=== PATIENT | female | born 2000 | race Caucasian/White ===

== ENCOUNTER 2021-01-05 21:31 | Inpatient (IN) ==
[2021-01-05] MEDS: RINGER'S SOLUTION,LACTATED 1,000 ML IV ONE (22:25)
[2021-01-05] MEDS ORDERED: OXYTOCIN/0.9 % SODIUM CHLORIDE 30 UNITS/500 ML BAG IV ONE (22:30)
[2021-01-05] MEDS ORDERED: ONDANSETRON 4 MG TAB.RAPDIS PO PRN (22:30)
[2021-01-05] MEDS ORDERED: DEXTROSE 5%-LACTATED RINGERS 1,000 ML IV PRN (22:30)
[2021-01-05] MEDS ORDERED: BUPIVACAINE HCL/0.9 % NACL/PF 250 ML EP PRN (22:32)
[2021-01-05] MEDS ORDERED: ONDANSETRON HCL/PF 2 MG/ML VIAL IV PRN (22:32)
[2021-01-05] MEDS ORDERED: NALOXONE HCL 1 MG/1 ML SYRG IV PRN (22:32)
[2021-01-05] MEDS ORDERED: fentaNYL CITRATE/PF 50 MCG/ML AMPUL IT SCH (22:45)
--- NOTE | 2021-01-05 23:00 | ANES ---
Anesthesia Pre Procedure Eval Vitals/Labs: Last Vital Signs Temp 36.9 C 01/05/21 22:50 Pulse 101 H 01/05/21 22:50 Resp 16 01/05/21 22:50 BP 133/77 01/05/21 22:50 Pulse Ox 98 01/05/21 22:50 HOME MEDICATIONS fexofenadine 60 mg tablet 60 mg PO DAILY tab 05/31/20 [Last Taken Unknown] [id number] 400 mcg-om3 35 mg-dha 25 mg-epa 5 mg-fish oil chewable tablet 1 tab PO DAILY 07/05/20 [Last Taken 11/29/20] hydroxyzine pamoate 25 mg capsule 25 mg PO Q4H PRN #30 cap 08/13/20 [Last Taken Unknown] Allergies/Adverse Reactions: Allergies Allergy/AdvReac Type Severity Reaction Status Date / Time No Known Allergies Allergy Verified 01/05/21 21:37 - Planned Procedure Planned Procedure: LABOR Medication List Reviewed:: Yes Allergies Verified: Yes Medical History (Last Reviewed 01/05/21 @ 22:59 by Allen Freeman CRNA) Chlamydial infection Onset Date: 2019 tx'd Seasonal allergies Wears glasses Surgical History (Last Reviewed 01/05/21 @ 22:59 by Allen Freeman CRNA) [place] teeth extracted Family History (Last Reviewed 01/05/21 @ 22:59 by Allen Freeman CRNA) Mother Alive and well Father Alive and well - Family Anesthesia History Family History:: no untoward family reactions to anesthesia, no familial bleeding tendencies, no family history of clotting disorders, no family history of premature - Airway/Neck/Teeth Within Normal Limits:: Yes Teeth Condition: intact Neck Exam: full range of motion Mallampatti Score: 2 Thyromental (T-M) distance: > 6 cm Mandibulo Hyoid distance: > 3 cm - Respiratory Respiratory Physical: lungs clear Sleep Apnea currently treated: No Sleep Apnea by current assessment: No - Cardiovascular Tolerate Activity: Fair Heart Sounds: S1 & S2, Regular - Gastrointestinal NPO since: this pm - Anesthesia Assessment and Plan ASA Class: PS, II, E Anesthesia Type Plan: Epidural - CSE for labor analgesia
--- NOTE | 2021-01-05 23:17 | ANES ---
Anesthesia Procedure Note Procedure Note: ANESTHESIA PROCEDURE NOTE Date of Procedure: 01/05/2021 Time of procedure: 2300. Performed by: ENRICO Lockhart CRNA, MSN Youtuber: Emily Mendez RN. Preprocedure diagnosis: Active labor, labor pain. Post procedure diagnosis: Same. Procedure:Epidural for labor analgesia L3-4. Indications: Labor pain. Findings: See below. Details of the procedure: The patient was placed on the side of the bed in sitting positionand prepped with DuraPrep then draped in a sterile fashion. Lidocaine 1% was infiltrated to the skin and subcutaneous tissues at the level of the L3-4 interspace. An 18-gauge Touhy needle was used to approach the epidural space with loss of resistance technique. Once loss of resistance was achieved a 27-gauge spinal needle was passed through the epidural needle and CSF was contacted. After CSF returned, 20 mcg of fentanyl was injected in the spinal needle was removed the epidural catheter was then threaded approximately 4 cm in the epidural needle was removed. The catheter was taped in place and after careful aspiration 3 mL of 1.5% lidocaine with 1-200,000 epinephrine was injected without change in maternal heart rate or sensorium. EBL: Minimal. Fluids: N/A. Specimen: N/A. Post procedure condition: The patient tolerated the procedure well with good relief. No complications were noted. Thank you for this consultation. Allen Freeman CRNA, ARNP, MSN
--- NOTE | 2021-01-05 23:18 | ANES ---
Post Anesthesia Discharge - Transfer of Care Transfer of Care handoff given to nurse: Yes - Discharge from PACU Discharge from PACU when meets criteria: Yes - Comfortable post CSE.
--- NOTE | 2021-01-05 23:31 | ANES ---
Post Anesthesia Assessment - Vital Signs Vitals: Last Vital Signs Temp 36.9 C 01/05/21 22:50 Pulse 101 H 01/05/21 22:50 Resp 16 01/05/21 22:50 BP 133/77 01/05/21 22:50 Pulse Ox 98 01/05/21 22:50 Airway Patency: Normal - Mental Status Level Of Consciousness: Awake, Alert, Appropriate - Pain Level Pain Score: 0 - N/V Assessment Nausea/Vomiting Presence: None Dehydration:: No
[2021-01-06] MEDS: RINGER'S SOLUTION,LACTATED 1,000 ML IV ONE (01:21)
--- NOTE | 2021-01-06 07:38 | HP ---
Chief Complaint - Chief Complaint Date of Service: 01/06/21 Time of Service: 07:24 Chief Complaint: My water broke History of Present Illness: 20-year-old 1 para 0 at 38-4/7 weeks admitted for spontaneous rupture of membranes in labor. Patient states at around 2114 she had a light green fluid gush out from the vagina after hearing a loud pop sound. She also feels contractions about every 5 to 7 minutes. This complicated by bacterial vaginitis. Rh+ Rubella nonimmune GBS negative Medical History (Last Reviewed 01/06/21 @ 07:26 by See Chery DO) Chlamydial infection Onset Date: 2019 tx'd Seasonal allergies Wears glasses Surgical History: Surgical History (Last Reviewed 01/06/21 @ 07:26 by See Chery DO) [place] teeth extracted Family History: Family History (Last Reviewed 01/06/21 @ 07:26 by See Chery DO) Mother Alive and well Father Alive and well Social History: (Last Reviewed 01/06/21 @ 07:26 by See Chery DO) Social History: Marital status: Single household members: significant other current occupational status: employed current occupation: [employer] Highest level of school completed/degree received: some college, no degree Sexually Active: Yes Service: No Tobacco: Smoking Status: Never smoker Alcohol: alcohol intake: never Substance Use: substance use type: does not use Dietary Habits: caffeine: Yes caffeine comment: 1-2/day Type: carbonated beverages daily servings of milk/calcium: 2-4 Exercise: Physical activity type: walking Physical activity functional status: independent ambulation Review Of Systems (GEN) - Review of Systems Generalized/Overall Review: Present: No Symptoms Reported EENTM: Present: No Symptoms Reported Respiratory: Present: No Symptoms Reported Cardiac: Present: No Symptoms Reported Abdominal: Present: Other - contractions Genitourinary: Present: Other - LOF since 2114 Musculoskeletal: Present: No Symptoms Reported Neurological: Present: No Symptoms Reported Skin: Present: No Symptoms Reported Endocrine: Present: No Symptoms Reported Allergies/Adverse Reactions: Allergies Allergy/AdvReac Type Severity Reaction Status Date / Time No Known Allergies Allergy Verified 01/05/21 21:37 Home Medications: HOME MEDICATIONS fexofenadine 60 mg tablet 60 mg PO DAILY tab 05/31/20 [Last Taken Unknown] [id number] 400 mcg-om3 35 mg-dha 25 mg-epa 5 mg-fish oil chewable tablet 1 tab PO DAILY 07/05/20 [Last Taken 11/29/20] hydroxyzine pamoate 25 mg capsule 25 mg PO Q4H PRN #30 cap 08/13/20 [Last Taken Unknown] Exam - Exam Vital Signs: Vital Signs - Last Taken Temp 36.9 C 01/05/21 22:50 Pulse 101 H 01/05/21 22:50 Resp 16 01/05/21 22:50 BP 133/77 01/05/21 22:50 Pulse Ox 98 01/05/21 22:50 Constitutional: Present: Alert, Oriented x3, Cooperative ENT Exam: Present: hearing grossly normal Neck: Present: non-tender. Absent: thyromegaly Breasts: Present: Exam deferred Respiratory: Present: lungs clear, no respiratory distress Cardiovascular/Chest: Present: regular rate, rhythm, no edema Abdomen: Present: soft, nontender, no rebound tenderness, other - Gravid /Rectal: Present: Other - Cervix - 3-4/75/-1, grossly ruptured with light meconium. Amnio test positive. Extremity: Present: no pedal edema, no calf tenderness Skin Exam: Present: normal color, warm/dry, no cyanosis Lymphatic: Present: no adenopathy Neurologic: Present: alert, normal mood/affect, oriented x 3 Appearance: Present: appropriate appearance, appropriate insight Eye contact: Present: cooperative, good eye contact Thoughts: Present: normal thought pattern, normal mood /affect Diagnostic Studies: Abnormal Lab Results 01/05/21 Range/Units 21:05 Membranes Rupture Positive H (Negative) Laboratory Results Membranes Rupture Positive (Negative) H 01/05/21 21:05 Assessment/Plan - Assessment/Plan (1) Spontaneous rupture of amniotic membranes Assessment: Admit for routine management of labor. Epidural and Pitocin as needed. Rubella vaccine . Problem: Acute (2) Not immune to rubella Problem: Acute
--- NOTE | 2021-01-06 07:39 | PN ---
Progess Note - Interim Date: 01/06/21 Time: 07:37 Narrative: 01/06/21 07:37 Patient feeling stronger urge to push Vital signs stable. Pitocin at 2 mu/min. FHT: 150 baseline, reassuring contractions q 1-1/2-2 min Cervix: Complete/+3, moderate nonparticulate meconium Impression: Intrauterine at 38-4/7 weeks in labor Plan: We will begin pushing and anticipate normal spontaneous vaginal delivery soon. Florist notified of meconium fluid.
--- NOTE | 2021-01-06 08:41 | OR ---
Operative Report - Dictated Report Narrative: Spontaneous vaginal delivery of vigorously crying viable male at 0811 on 01/06/2021 with Apgars 9 and 9, weighing 3509 g in JACINTO position. Cord clamping delayed approximately 1 minute Placenta delivered placenta delivered complete with three-vessel cord. Trailing membranes came out separately in 3 different pieces. Manual exploration of the uterine cavity appeared to be completely empty of all membranes. Estimated blood loss: 100 mL Anesthesia: Epidural Lacerations: Bilateral periurethral abrasions with no repair is needed. History for History for Definition: * The number of deliveries resulting in a live the patient experienced prior to current hospitalization * The previous delivery of live twins or any live multiple gestation is considered one live event. *If primagravida or nulliparous is documented select zero for the number of previous live births. Live Events: Live Events: 1
[2021-01-06] MEDS ORDERED: BENZOCAINE/MENTHOL 81 SPRAY CAN TP PRN (08:46)
[2021-01-06] MEDS ORDERED: GLYCERIN/WITCH HAZEL LEAF 40 APPL BOX TP PRN (08:46)
[2021-01-06] MEDS ORDERED: HYDROCORTISONE 30 APPL TUBE TP PRN (08:46)
[2021-01-06] MEDS ORDERED: OXYTOCIN/0.9 % SODIUM CHLORIDE 30 UNITS/500 ML BAG IV ONE (08:46)
[2021-01-06] MEDS ORDERED: BISACODYL 10 MG SUPP.RECT RC PRN (08:46)
[2021-01-06] MEDS ORDERED: SENNOSIDES 8.6 MG TABLET PO PRN (08:46)
[2021-01-06] MEDS: IBUPROFEN 800 MG TABLET PO PRN ×2 (10:11→22:54)
[2021-01-06] MEDS: PNV62 PO SCH (10:12)
[2021-01-06] MEDS: EPA PO SCH (10:12)
[2021-01-06] MEDS: FISH OIL PO SCH (10:12)
[2021-01-06] MEDS: [UNRECOGNIZED DRUG - OTHER] PO SCH (10:12)
[2021-01-06] MEDS: DHA PO SCH (10:12)
[2021-01-06] MEDS: DOCUSATE SODIUM 100 MG CAPSULE PO SCH ×2 (10:12→20:46)
[2021-01-07] MEDS: oxyCODONE HCL/ACETAMINOPHEN 1 TAB TABLET PO PRN ×3 (04:06→14:20)
[2021-01-07] MEDS: IBUPROFEN 800 MG TABLET PO PRN ×3 (04:51→21:41)
[2021-01-07] MEDS: DOCUSATE SODIUM 100 MG CAPSULE PO SCH ×2 (08:38→20:59)
[2021-01-07] MEDS: PNV62 PO SCH (08:39)
[2021-01-07] MEDS: DHA PO SCH (08:39)
[2021-01-07] MEDS: FISH OIL PO SCH (08:39)
[2021-01-07] MEDS: [UNRECOGNIZED DRUG - OTHER] PO SCH (08:39)
[2021-01-07] MEDS: EPA PO SCH (08:39)
--- NOTE | 2021-01-07 09:14 | PN ---
Subjective - Date and Time Seen Date: 01/07/21 Time: 09:03 Subjective Narrative: Patient complains of uterine and lower abdominal tenderness and malaise. Denies fever or chills. Objective - Review of Systems Generalized/Overall Review: Reports: Malaise. Denies: Chills, Fever, Diaphoresis EENTM: Reports: No Symptoms Reported Respiratory: Reports: No Symptoms Reported Cardiac: Reports: No Symptoms Reported Abdominal: Reports: Abdominal Pain Genitourinary Symptoms: Reports: No Symptoms Reported Musculoskeletal Complaints: Reports: No Symptoms Reported Neurological: Reports: No Symptoms Reported Skin: Reports: No Symptoms Reported Endocrine: Reports: No Symptoms Reported - Vitals Vitals: Last Vital Signs Temp 38.1 C H 01/07/21 06:58 Pulse 126 H 01/07/21 06:58 Resp 16 01/07/21 06:58 BP 115/53 01/07/21 06:58 Pulse Ox 98 01/07/21 06:58 - Exam Constitutional: Present: Alert, Oriented x3, Cooperative, No distress ENT Exam: Present: hearing grossly normal Respiratory: Present: lungs clear, no respiratory distress Cardiovascular/Chest: Present: tachycardia Abdomen: Present: soft, no rebound tenderness, tender, other - uterine tenderness /Rectal: Present: Other - Lochia WNL Extremity: Present: no calf tenderness Skin Exam: Present: normal color, warm/dry, no cyanosis Lymphatic: Present: no adenopathy Neurologic: Present: alert, normal mood/affect, oriented x 3 Appearance: Present: appropriate appearance, appropriate insight Eye contact: Present: cooperative, good eye contact Thoughts: Present: normal mood /affect Cauti Physician Documentation - Urinary Catheter Management Urethral (Tolliver) Date of Insertion: 01/05/21 Time of Insertion: 23:58 Date of Removal: 01/06/21 Time of Removal: 07:15 Assessment/Plan - Problems/Diagnosis (1) endometritis Problem: Acute Narrative: Will start on triple antibiotics for 24-48h. Monitor closely for response. (2) Spontaneous rupture of amniotic membranes Problem: Resolved (3) Not immune to rubella Problem: Acute
[2021-01-07] MEDS: CLINDAMYCIN IN 0.9 % SOD CHLOR 900 MG/50 ML BAG IV SCH ×3 (09:48→18:26)
[2021-01-07] MEDS: AMPICILLIN SODIUM 2,000 MG in NORMAL SALINE 100 ML IV SCH ×3 (09:49→21:01)
[2021-01-07 09:55] LABS: Hematocrit 28.9 % (37.0-47.0); Hemoglobin 9.3 gm/dL (12.5-16.0); Mean Corpuscular Hgb Conc 32.2 g/dl (32-36); Mean Platelet Volume 10.1 fl (8-12.5); Platelet Count 272 K/mm3 (150-450); Red Blood Count 3.32 M/mm3 (4.2-5.4); Red Cell Distribution Width 13.8 % (11.5-14.0)
[2021-01-07 09:59] LABS: White Blood Count 29.9 K/mm3 (4.0-10.5)
[2021-01-07 10:00] LABS: Total Cells Counted 100
[2021-01-07] MEDS ORDERED: WATER IV ONE ×2 (10:00)
[2021-01-07] MEDS ORDERED: GENTAMICIN SULFATE IV ONE ×2 (10:00)
[2021-01-07] MEDS ORDERED: DEXTROSE 5% IV ONE ×2 (10:00)
[2021-01-07 10:37] LABS: Band 2 % (0-2.0); Lymphocyte 6 % (20-51); Monocyte 5 % (0-9); Neutrophil 87 % (42-75); Platelet Estimate Normal (NORMAL); RBC Morphology Normal (NORMAL)
[2021-01-07] MEDS ORDERED: POLYETHYLENE GLYCOL 3350 17 GM PACKET PO PRN (15:35)
[2021-01-08] MEDS: CLINDAMYCIN IN 0.9 % SOD CHLOR 900 MG/50 ML BAG IV SCH ×3 (01:26→17:13)
[2021-01-08] MEDS: AMPICILLIN SODIUM 2,000 MG in NORMAL SALINE 100 ML IV SCH ×4 (02:33→21:01)
--- NOTE | 2021-01-08 08:55 | PN ---
Subjective - Date and Time Seen Date: 01/08/21 Time: 08:50 Objective - Vitals Vitals: Last Vital Signs Temp 37.1 C 01/08/21 07:38 Pulse 107 H 01/08/21 07:38 Resp 16 01/08/21 07:38 BP 115/57 01/08/21 07:38 Pulse Ox 100 01/08/21 07:38 Abdominal pain markedly improved since yesterday. Patient complained of having night sweats and chills last night but was afebrile. Lochia wnl abdomen - soft, mildly tender with no rebound tenderness uterus -firm, at umbilicus - 2, mildly tender No calf tenderness, 1+ nonpitting edema Impression: day #2 - s/p spontaneous vaginal delivery. endometritis-resolving. Plan: We will continue antibiotics till tomorrow morning to complete 48 hours of IV antibiotics. If patient continues to improve clinically and remains afebrile will discharge to home tomorrow morning. - Abnormal Lab Findings Abnormal Lab Findings: Abnormal Lab Results 01/07/21 Range/Units 09:43 WBC 29.9 H (4.0-10.5) K/mm3 RBC 3.32 L (4.2-5.4) M/mm3 Hgb 9.3 L (12.5-16.0) gm/dL Hct 28.9 L (37.0-47.0) % Neutrophils % (Manual) 87 H (42-75) % Lymphocytes % (Manual) 6 L (20-51) % Neutrophils # (Manual) 26.0 H (1.3-6.0) K/mm3 Monocytes # (Manual) 1.5 H (0.0-1.0) k/mm3 Cauti Physician Documentation - Urinary Catheter Management Urethral (Tolliver) Date of Insertion: 01/05/21 Time of Insertion: 23:58 Date of Removal: 01/06/21 Time of Removal: 07:15 Assessment/Plan - Problems/Diagnosis (1) endometritis Problem: Acute (2) Spontaneous rupture of amniotic membranes Problem: Resolved (3) Not immune to rubella Problem: Acute
[2021-01-08] MEDS: DHA PO SCH (09:20)
[2021-01-08] MEDS: [UNRECOGNIZED DRUG - OTHER] PO SCH (09:20)
[2021-01-08] MEDS: FISH OIL PO SCH (09:20)
[2021-01-08] MEDS: EPA PO SCH (09:20)
[2021-01-08] MEDS: PNV62 PO SCH (09:20)
[2021-01-08] MEDS: DOCUSATE SODIUM 100 MG CAPSULE PO SCH ×2 (09:24→21:38)
[2021-01-08] MEDS ORDERED: WATER IV ONE ×2 (11:00)
[2021-01-08] MEDS ORDERED: GENTAMICIN SULFATE IV ONE ×2 (11:00)
[2021-01-08] MEDS ORDERED: DEXTROSE 5% IV ONE ×2 (11:00)
[2021-01-08] MEDS: IBUPROFEN 800 MG TABLET PO PRN ×2 (13:55→21:38)
[2021-01-08] MEDS: FERROUS SULFATE 325 MG TABLET PO SCH (21:38)
[2021-01-08] MEDS: ASCORBIC ACID 500 MG TABLET PO SCH (21:38)
[2021-01-09] MEDS: CLINDAMYCIN IN 0.9 % SOD CHLOR 900 MG/50 ML BAG IV SCH ×3 (01:36→23:49)
[2021-01-09] MEDS: AMPICILLIN SODIUM 2,000 MG in NORMAL SALINE 100 ML IV SCH ×3 (03:49→21:40)
[2021-01-09 06:49] LABS: Hematocrit 26.7 % (37.0-47.0); Hemoglobin 8.3 gm/dL (12.5-16.0); Mean Cell Volume 88.1 fl (78-100); Mean Corpuscular Hemoglobin 27.4 pg (27-31); Mean Corpuscular Hgb Conc 31.1 g/dl (32-36); Mean Platelet Volume 9.8 fl (8-12.5); Neutrophil # 11.3 K/mm3 (1.3-6.0); Neutrophil % 75.2 % (42-75.0); Platelet Count 250 K/mm3 (150-450); Red Blood Count 3.03 M/mm3 (4.2-5.4); Red Cell Distribution Width 13.9 % (11.5-14.0); White Blood Count 15.1 K/mm3 (4.0-10.5)
[2021-01-09] MEDS: EPA PO SCH (09:58)
[2021-01-09] MEDS: FISH OIL PO SCH (09:58)
[2021-01-09] MEDS: PNV62 PO SCH (09:58)
[2021-01-09] MEDS: FERROUS SULFATE 325 MG TABLET PO SCH ×2 (09:58→21:39)
[2021-01-09] MEDS: DOCUSATE SODIUM 100 MG CAPSULE PO SCH (09:58)
[2021-01-09] MEDS: [UNRECOGNIZED DRUG - OTHER] PO SCH (09:58)
[2021-01-09] MEDS: ASCORBIC ACID 500 MG TABLET PO SCH ×2 (09:58→21:39)
[2021-01-09] MEDS: DHA PO SCH (09:58)
[2021-01-09] MEDS ORDERED: DEXTROSE 5%-LACTATED RINGERS 1,000 ML IV PRN (14:51)
[2021-01-09] MEDS: GENTAMICIN SULFATE IV SCH ×2 (17:07)
[2021-01-09] MEDS: DEXTROSE 5% IV SCH ×2 (17:07)
[2021-01-09] MEDS: WATER IV SCH ×2 (17:07)
--- NOTE | 2021-01-09 17:57 | PN ---
Progess Note - Interim Date: 01/09/21 Time: 17:56 Narrative: 01/09/21 17:56 Earlier this afternoon patient had acute episode of fever and chills with temperature of 38.2. Pelvic ultrasound was done in radiology revealing a small possible area of retained products of conception in the right fundus. IV antibiotics were restarted and patient was counseled on the risk/benefits/alternatives to suction curettage/curettage. She desires to proceed with procedure. Patient was placed on the OR schedule for surgery this evening next available.
[2021-01-09] MEDS: oxyCODONE HCL/ACETAMINOPHEN 1 TAB TABLET PO PRN (21:37)
[2021-01-09] MEDS ORDERED: MISOPROSTOL 200 MCG TABLET RC ONE (21:40)
--- NOTE | 2021-01-09 21:40 | ANES ---
Post Anesthesia Discharge - Transfer of Care Transfer of Care handoff given to nurse: Yes - Discharge to ASU Discharge to ASU-no complications/pt stable: Yes - In room as ASU.
--- NOTE | 2021-01-09 21:47 | ANES ---
Post Anesthesia Assessment - Vital Signs Vitals: Last Vital Signs Temp 37.2 C 01/09/21 19:12 Pulse 130 H 01/09/21 19:12 Resp 16 01/09/21 19:12 BP 109/63 01/09/21 19:12 Pulse Ox 99 01/09/21 19:12 Airway Patency: Normal - Mental Status Level Of Consciousness: Awake, Alert, Appropriate - Pain Level Pain Score: 6 - N/V Assessment Nausea/Vomiting Presence: None Dehydration:: No
--- NOTE | 2021-01-09 22:12 | OR ---
Operative Report - Dictated Report Narrative: DATE OF PROCEDURE: 01/09/2021 INDICATION: 20-year-old one para one day three with retained products of conception noted on ultrasound. PREOPERATIVE DIAGNOSIS: retained products of conception. Endometritis POSTOPERATIVE DIAGNOSIS: Same PROCEDURE: curettage SURGEON: Rob Chery D.O. WOOD CARVER: OR staff ANESTHESIA: IV sedation ESTIMATED BLOOD LOSS: 150 mL URINE OUTPUT: Not recorded FLUID REPLACEMENT: 250 mL FINDINGS: Moderate amount of products of conception. Gravid size uterus with cervix dilated to 3 to 4 cm. SPECIMEN(S): Products of conception TECHNIQUE: Patient was taken to the operating room and placed in dorsal lithotomy position after adequate IV sedation. The anterior lip of the cervix was grasped with a ring forcep. A banjo curette was inserted through the cervical canal into the uterine cavity. The entire uterine cavity was gently scraped to remove a moderate amount of products of conception near the fundus of the uterus. All instruments were removed from the cervix and vagina. Sponge, lap, instrument, needle count correct x 2. 400 mcg of Cytotec were placed rectally at the end of the procedure. DISPOSITION: The patient was transferred to postanesthesia care unit in good condition.
[2021-01-10] MEDS: IBUPROFEN 800 MG TABLET PO PRN ×2 (00:47→23:23)
[2021-01-10] MEDS: AMPICILLIN SODIUM 2,000 MG in NORMAL SALINE 100 ML IV SCH ×3 (02:40→14:51)
[2021-01-10] MEDS: DOCUSATE SODIUM 100 MG CAPSULE PO SCH ×2 (03:08→08:52)
[2021-01-10] MEDS: ASCORBIC ACID 500 MG TABLET PO SCH (08:52)
[2021-01-10] MEDS: CLINDAMYCIN IN 0.9 % SOD CHLOR 900 MG/50 ML BAG IV SCH ×2 (08:52→15:21)
[2021-01-10] MEDS: FERROUS SULFATE 325 MG TABLET PO SCH ×2 (08:52→16:20)
[2021-01-10] MEDS ORDERED: PRENATAL VITS96/IRON FUM/FOLIC 1 TAB TABLET ONE (09:00)
[2021-01-10] MEDS: [UNRECOGNIZED DRUG - OTHER] PO SCH (09:01)
[2021-01-10] MEDS: EPA PO SCH (09:01)
[2021-01-10] MEDS: FISH OIL PO SCH (09:01)
[2021-01-10] MEDS: DHA PO SCH (09:01)
[2021-01-10] MEDS: PNV62 PO SCH (09:01)
--- NOTE | 2021-01-10 09:09 | PN ---
Subjective - Date and Time Seen Date: 01/10/21 Time: 09:01 Objective - Vitals Vitals: Last Vital Signs Temp 37.2 C 01/10/21 06:48 Pulse 78 01/10/21 06:48 Resp 18 01/10/21 06:48 BP 99/45 01/10/21 06:48 Pulse Ox 98 01/10/21 06:48 Patient states this is the best she has felt since delivery of her child. Denies fever chills, pelvic pain, uterine pain, or significant bleeding. Lochia wnl abdomen - soft, nontender Uterus -firm, at umbilicus - 2 No calf tenderness Impression: day #3 - s/p spontaneous vaginal delivery. Postop day #1 status post curettage. Plan: We will continue IV triple antibiotics to complete a total 24 hours then discharge patient to home. Cauti Physician Documentation - Urinary Catheter Management Urethral (Tolliver) Date of Insertion: 01/05/21 Time of Insertion: 23:58 Date of Removal: 01/06/21 Time of Removal: 07:15 Assessment/Plan - Problems/Diagnosis (1) Retained placenta parts or membranes, delivered w/ condition Problem: Resolved (2) endometritis Problem: Acute (3) Spontaneous rupture of amniotic membranes Problem: Resolved (4) Not immune to rubella Problem: Acute (5) Normal spontaneous vaginal delivery Problem: Resolved
[2021-01-10 13:55] VITALS: BP 99/58
[2021-01-10] MEDS: DEXTROSE 5% IV SCH ×2 (16:19)
[2021-01-10] MEDS: GENTAMICIN SULFATE IV SCH ×2 (16:19)
[2021-01-10] MEDS: WATER IV SCH ×2 (16:19)
--- NOTE | 2021-01-10 18:41 | DS ---
OB Discharge Summary (1) Normal spontaneous vaginal delivery Status: Resolved (2) Retained placenta parts or membranes, delivered w/ condition Status: Resolved (3) endometritis Status: Resolved (4) Spontaneous rupture of amniotic membranes Status: Resolved (5) Not immune to rubella Status: Chronic Delivery Date: 01/06/21 Delivery Time: 08:11 :: 1 Para:: 1 Gestational weeks:: 38 Gestational days:: 4 Intrapartum Procedures: Spontaneous Vaginal Delivery, Delivered, Anesthesia - Epidural Procedures: Antibiotics1, Curettage /OP Complications: Retained Placenta, Pelvic Infection Discharge Diagnosis: Term -Delivered, Rubella Nonimmune - Discharge Information Date of Discharge: 01/10/21 Hospital Course: 20-year-old 1 now para 1 admitted at 38 4/7 weeks with spontaneous rupture membranes and meconium stained fluid in early labor. Her labor was uncomplicated. Third stage of delivery was complicated by difficulty removing placental membranes. On late day 1 patient developed fever and chills uterine tenderness and was started on triple IV antibiotics. At the end of the 48-hour course patient was markedly better and shortly before discharge spiked another fever and began having significant uterine tenderness. Pelvic ultrasound revealed a possible retained placental parts in the right uterine fundus. Patient underwent a curettage removing moderate amount of placental tissue. She was placed on an additional 24 hours of triple IV antibiotics. Patient felt markedly better after the curettage. Her uterus began involuting appropriately, she had minimal bleeding, and felt much better. She was discharged to home with routine discharge instructions with the addition of watching for signs/symptoms of endometritis. Discharge Location: Home Disposition: Home self-care Condition: Good Activity on Discharge:: Activity as tolerated, Pelvic Rest Discharge Diet: General/regular food Additional Patient Instructions (free text): Bernadine your four week post check up is on January 29 at 9:15 AM with . Please call with any questions/concerns. [facility] [phone]. [facility] [phone]. Complete Home Medications List: Complete Home Medication List: fexofenadine 60 mg tablet 60 mg PO DAILY tab 05/31/20 [id number] 400 mcg-om3 35 mg-dha 25 mg-epa 5 mg-fish oil chewable tablet 1 tab PO DAILY 07/05/20 hydroxyzine pamoate 25 mg capsule 25 mg PO Q4H PRN #30 cap 08/13/20 - Plan Discharge to:: Home Follow up in office in:: 3-4 weeks - Information Weight (Grams): 3,509 Infant Sex: Male Score 1 min: 9 Score 5 min: 9 Complications: Decreased Variability, Multiple Variable Decels, Meconium Other Complications: thin mec at time of ROM, thick at delivery. Trailing membranes. Maternal fever day after delivery. Mom and baby on IV ATBs.
[2021-01-11] MEDS ORDERED: GENTAMICIN SULFATE LEVEL XX ONE (00:30)
== END 2021-01-10 23:30 | disposition home or self-care (01) | DRG 806 ==
LOC: OBCLINIC 21:31 → OB 22:26 → MS 01-09 11:48
PROVIDERS: ADMIT Obstetrics & Gynecology; ATTEND Obstetrics & Gynecology